=== PATIENT | female | born 1960 | race Caucasian/White ===

== ENCOUNTER 2019-08-12 08:46 | Inpatient (IN) | payer MEDICAID ==
[~2019-08-12] VITALS: Ht 160 cm; Wt 96.0 kg
[2019-08-12 10:13] LABS: Basophils # (auto) 0.2 uL; Basophils % (auto) 1.1 % (0.0-2.0); Eosinophils # (auto) 0.1 uL; Eosinophils % (auto) 0.7 % (0.0-7.0); Hematocrit 44.4 % (36.0-46.0); Hemoglobin 14.4 g/dL (12.2-16.2); Lymphocytes # (auto) 1.8 uL; Lymphocytes % (auto) 12.7 % (10.0-50.0); Mean Corpuscular Hemoglobin 29.2 pg (28.0-32.0); Mean Corpuscular Hgb Conc. 32.4 g/dL (32.0-36.0); Mean Corpuscular Volume 90.2 fL (80.0-100.0); Monocytes # (auto) 0.7 uL; Neutrophils # (auto) 11.7 uL; Neutrophils % (auto) 80.5 % (37.0-80.0); Platelet Count (auto) 324 10^3/uL (140-450); Red Blood Cells 4.92 10^6/uL (4.0-5.20); Red Cell Distribution Width 16.4 % (11.8-14.3); White Blood Cell 14.5 10^3/uL (4.4-10.8)
[2019-08-12 10:28] LABS: Albumin 3.4 g/dL (3.4-5.0); BUN/Creatinine Ratio 15.4; Calcium 8.6 mg/dL (8.5-10.1); Potassium 3.6 mmol/L (3.5-5.1)
[2019-08-12 10:31] LABS: Bilirubin, Total 0.5 mg/dL (0.2-1.0); Total Protein 6.6 g/dL (6.4-8.2)
[2019-08-12] MEDS ORDERED: FUROSEMIDE 40 MG/4 ML VIAL IV ONE (13:00)
[2019-08-12] MEDS ORDERED: ACETAMINOPHEN 500 MG TAB PO PRN (14:30)
[2019-08-12] MEDS ORDERED: DEXTROSE (50%) 50ML SYRG IV PRN (14:30)
[2019-08-12] MEDS ORDERED: TEMAZEPAM 15 MG CAP PO PRN (14:30)
[2019-08-12] MEDS ORDERED: traMADol HCL 50 MG TAB PO PRN (14:30)
[2019-08-12] MEDS ORDERED: PROMETHAZINE HCL 25 MG/ML 1ML IV PRN (14:30)
[2019-08-12] MEDS ORDERED: LACTULOSE 20Gm/30ML SOLN PO PRN (14:30)
[2019-08-12] MEDS ORDERED: MORPHINE SULF INJ 2 MG/ML SYRINGE 1ML IV PRN (14:30)
[2019-08-12] MEDS ORDERED: NITROGLYCERIN 0.4 MG SL TAB SL PRN (14:30)
--- NOTE | 2019-08-12 17:00 | NUR ---
Telemetry admit from ER ERNESTINA LOWE admitted to Telemetry unit after SBAR received. Patient oriented to Natalie Hensley, primary RN, unit, room, bed, and unit policies regarding patient care and visiting hours. Patient now on continuous telemetry monitoring, tele box #4 and telemetry reading on arrival to unit is . Patient placed on bedside oxygen, weighed by bedscale and encouraged to call if they need something. All questions and concerns addressed, patient verbalized understanding. Note:
--- NOTE | 2019-08-12 17:10 | NUR ---
PATIENT IS ALERT ORIENTED X4, AMBULATORY, SKIN INTACT, 1+ TO 2+ EDEMA ON BOTH LOWER EXTREMITIES NOTED, PATIENT IS VERY PLEASANT, AWARE VERY WELL WITH HER LIFE STYLE SMOKING AND EATING UNHEALTHY DIET, EDUCATION REGARDING SMOKING AND DIABETES GIVEN TO PT, PAIN 0/10 AT THIS TIME, CALL LIGHT WITHIN REACH.
[2019-08-12] MEDS: ACCU-CHEK COMFORT CURVE STRIP VI SCH ×2 (17:35→22:01)
[2019-08-12] MEDS ORDERED: ESTR0.3T PO (17:42)
[2019-08-12] MEDS ORDERED: CHOL20007 PO (17:42)
[2019-08-12] MEDS ORDERED: GABA-339 PO (17:42)
[2019-08-12] MEDS ORDERED: IBUP100S11 PO (17:42)
[2019-08-12 17:49] VITALS: BP 163/89
--- NOTE | 2019-08-12 18:33 | NUR ---
PATIENT CONTINUE STABLE, EDUCATION REGARDING FLUID RESTRICTION GIVEN TO PT, VERBALIS UNDERSTANDING
--- NOTE | 2019-08-12 19:30 | NUR ---
Opening Shift Note Assumed care of patient, awake and alert. No S/S of distress/SOB. Instructed on POC and to call for assist PRN, will continue to monitor for changes Q1hr and PRN.
--- NOTE | 2019-08-12 20:30 | NUR ---
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 She states she takes Ibuprofen and Gabapentin and had not taken any all day. No orders available, so paged hospitalist.
[2019-08-12] MEDS ORDERED: GABAPENTIN 300 MG CAP PO ONE (20:45)
[2019-08-12] MEDS ORDERED: IBUPROFEN 600 MG TAB PO ONE (20:45)
--- NOTE | 2019-08-12 21:00 | NUR ---
Received new orders for one time dose of 600mg Gabapentin and one time does of ibuprofen 600 mg. Will input orders and administer accordingly.
[2019-08-12 22:00] VITALS: BP 160/99
[2019-08-12] MEDS: SODIUM CHLOR 0.9% PF (SALINE LOCK) 10ML VIAL/SYR IV SCH (22:00)
[2019-08-12] MEDS: CARVEDILOL 3.125 MG TAB PO SCH (22:00)
[2019-08-13 03:31] LABS: Alcohol, Urine < 3.0 mg/dL (0-5); Amphetamine Screen, Urine NEGATIVE (NEGATIVE); Barbiturate Scree,Urine NEGATIVE (NEGATIVE); Benzodiazephine Screen, Urine NEGATIVE (NEGATIVE); Cannabinoid Screen, Urine NEGATIVE (NEGATIVE); Cocaine Screen, Urine NEGATIVE (NEGATIVE); Opiate Scree,Urine NEGATIVE (NEGATIVE); Phencyclidine Screen, Urine NEGATIVE (NEGATIVE)
[2019-08-13 03:36] LABS: Urine Bacteria FEW /hpf (None Seen); Urine Blood Negative /uL (Negative); Urine Mucus FEW (None Seen); Urine WBC 3 /hpf (0 - 5)
[2019-08-13 05:00] VITALS: BP 158/88
[2019-08-13] MEDS: SODIUM CHLOR 0.9% PF (SALINE LOCK) 10ML VIAL/SYR IV SCH ×2 (05:51→14:00)
[2019-08-13] MEDS: ACCU-CHEK COMFORT CURVE STRIP VI SCH ×3 (05:51→17:00)
[2019-08-13 06:16] LABS: Basophils # (auto) 0.1 uL; Basophils % (auto) 1.2 % (0.0-2.0); Eosinophils # (auto) 0.1 uL; Eosinophils % (auto) 1.4 % (0.0-7.0); Hematocrit 42.2 % (36.0-46.0); Hemoglobin 13.9 g/dL (12.2-16.2); Lymphocytes # (auto) 1.7 uL; Lymphocytes % (auto) 16.6 % (10.0-50.0); Mean Corpuscular Hemoglobin 28.9 pg (28.0-32.0); Mean Corpuscular Volume 87.7 fL (80.0-100.0); Monocytes # (auto) 0.7 uL; Monocytes % (auto) 6.7 % (0.0-12.0); Neutrophils # (auto) 7.5 uL; Neutrophils % (auto) 74.1 % (37.0-80.0); Nucleated Red Blood Cells % 0.1 %; Platelet Count (auto) 297 10^3/uL (140-450); Red Blood Cells 4.81 10^6/uL (4.0-5.20); Red Cell Distribution Width 15.6 % (11.8-14.3); White Blood Cell 10.1 10^3/uL (4.4-10.8)
[2019-08-13 06:32] LABS: Alanine Aminotransferase 38 U/L (13-56); Albumin 3.1 g/dL (3.4-5.0); Anion Gap 7 (5-15); Aspartate Aminotransferase 16 U/L (15-37); BUN/Creatinine Ratio 23.3; Blood Urea Nitrogen 21 mg/dL (7-18); Calcium 8.5 mg/dL (8.5-10.1); Carbon Dioxide 26 mmol/L (21-32); Chloride 109 mmol/L (98-107); GFR African American 82 mL/min; GFR Non-African American 68 mL/min; Glucose 111 mg/dL (74-106); Potassium 3.8 mmol/L (3.5-5.1); Sodium 142 mmol/L (136-145)
[2019-08-13 06:35] LABS: Alkaline Phosphatase 79 U/L (45-117); Bilirubin, Total 0.5 mg/dL (0.2-1.0); Total Protein 6.3 g/dL (6.4-8.2)
--- NOTE | 2019-08-13 08:00 | NUR ---
RECEIVED PATIENT ALERT AND ORIENTED X3, NOT IN DISTRESS, LS WHEEZING IN BILATERAL UPPER LOWER LUNG LOBES, RR=18, SAT=95%, DEEP BREATHING AND COUGHING ENCOURAGED, DEMONSTRATED UNDERSTANDING, HEART PACED BEATS R=72 ON TELE MONITOR, ABDOMEN SOFT AND FLAT WITH ACTIVE BS, LAST BM=THIS MORNING REPORTED, SKIN INTACT WARM TO TOUCH, RADIAL AND PEDAL PULSES PALPABLE, CAP REFILL<3 SECONDS, HEAD OF BED ELEVATED, BED ON LOW POSITION, RAILS UP X2, CALL LIGHT ON REACH, WILL CONTINUE MONITORING.
[2019-08-13 09:00] VITALS: BP 160/89
--- NOTE | 2019-08-13 09:00 | NUR ---
FQ=[id number] P=77, WENT OUT OF THE UNIT FOR SMOKING, AMA ON CHART, PAGED OVER HEAD TO RETURN TO THE ROOM, WAITING PATIENT TO RETURN BACK TO THE ROOM FOR BP MONITORING AND FOLLOW UP, WILL CONTINUE MONITORING.
[2019-08-13] MEDS ORDERED: NITROGLYCERIN 0.2MG/HR TOPICAL PATCH TD SCH (10:00)
[2019-08-13] MEDS ORDERED: ENALAPRIL MALEATE 2.5 MG TAB PO SCH (10:00)
[2019-08-13] MEDS ORDERED: PANTOPRAZOLE 40 MG TAB PO SCH (10:00)
[2019-08-13] MEDS ORDERED: FUROSEMIDE 40 MG/4 ML VIAL IV SCH (10:00)
[2019-08-13] MEDS ORDERED: ASPirin 81 mg TAB PO SCH (10:00)
[2019-08-13] MEDS ORDERED: ENOXAPARIN SOD 40 MG/0.4 ML SYRINGE SC SCH (10:00)
[2019-08-13] MEDS ORDERED: POTASSIUM CHL 20 Meq TABLET PO SCH (10:00)
[2019-08-13] MEDS: CARVEDILOL 3.125 MG TAB PO SCH (10:33)
[2019-08-13] MEDS ORDERED: ENAL2.5T PO (12:16)
[2019-08-13] MEDS ORDERED: FURO1TAB33 PO (12:16)
[2019-08-13] MEDS ORDERED: CAR3125T PO (12:16)
[2019-08-13 13:00] VITALS: BP 145/86
--- NOTE | 2019-08-13 13:11 | NUR ---
NONE COMPLIANT WITH TELE MONITOR, PENDING D/C IF CLEARED WITH CARDIOLOGY, WAITING FOR CARDIOLOGY CONSULT, WILL CONTINUE MONITORING.
[2019-08-13 14:45] VITALS: BP 148/82
--- NOTE | 2019-08-13 16:30 | NUR ---
D/C INSTRUCTIONS AND PCP FOLLOW UP APPOINTMENT ARRANGEMENT INFORMATION PROVIDED, VERBALIZED UNDERSTANDING, MEDICATION BROUGHT TO THE ROOM BY [facility], MEDICATION EDUCATION PROVIDED, VERBALIZED UNDERSTANDING, SS CONSULT WAS DONE ORDERED, D/C TELE AND IV SITE, TOLERATED WELL, PATIENT IS A HOME LESS AND REQUESTED TO STAY FOR DINNER, CHARGE NURSE TONYA WAS INFORMED, WAITING TO EAT DINNER BEFORE D/C, NOT IN DISTRESS DENIED PAIN, WILL CONTINUE MONITORING.
--- NOTE | 2019-08-13 18:00 | NUR ---
OUT OF THE UNIT BELONGINGS IN THE ROOM, DINNER AT THE TABLE, PAGED OVER HEAD TO COME TO THE ROOM, CAME BACK TO THE ROOM AND EATING DINNER AT THIS MOMENT.
--- NOTE | 2019-08-13 19:06 | NUR ---
REFUSED TO D/C AND LEAVE, REASONING NO PLACE TO GO, "ROOMMATE REFUSED TO TAKE ME BACK, NO BED AVAILABLE IN HALFWAY." PHYSICAL CHEMISTRY TEACHER CHARGE NOTIFIED.
--- NOTE | 2019-08-13 19:22 | NUR ---
Discharge planning per consult, patient has orders for home health and homeless resources. Patient was trying to delay all day her discharge, being argumentative with the nurse, although on multiple encounters I advised I needed an address to refer for her home health. She even told Dr. Palacios that she wasn't ready because she was still looking for a place. Patient said she could go to her friends house but he was selling it. She said all the number to the multiple homeless resources I provided were disconnected; I provided her with more homeless resources including churches. Home Health referral were faxed to [facility] [phone] and [facility] [phone]. Acceptance is pending and referral was also faxed to [facility] [phone] and the front end software engineer CM or nurse can follow up for acceptance and auth. Addendum: 08/13/19 at 1928 by KAYCEE DECKER Amended: Links added.
--- NOTE | 2019-08-13 19:24 | NUR ---
PENDING TO [facility], REPORT WAS GIVEN TO THE AUTOMOBILE MECHANIC SUPERVISOR RN.
--- NOTE | 2019-08-13 20:52 | NUR ---
Patient discharged with follow up appointment with primary caregiver. Patient plans on contacting the [facility] department to regain access to her home for the night. Patient also provided with homeless group home resources and was advised that [facility] will have open beds in the morning.
== END 2019-08-13 20:52 | disposition home health service (06) | DRG 194 ==
LOC: ER 08:46 → TELE 08:47 → TELE-EAST 17:00
PROVIDERS: ADMIT Internal Medicine; ATTEND Hospitalist
DX: I11.0 Hypertensive heart disease with heart failure (principal); G62.9 Polyneuropathy, unspecified; D72.829 Elevated white blood cell count, unspecified; F17.210 Nicotine dependence, cigarettes, uncomplicated; G89.29 Other chronic pain; I50.33 Acute on chronic diastolic (congestive) heart failure; M19.90 Unspecified osteoarthritis, unspecified site; M47.9 Spondylosis, unspecified; R73.9 Hyperglycemia, unspecified; M54.9 Dorsalgia, unspecified; Z87.442 Personal history of urinary calculi; Z59.0 Homelessness; Z80.8 Family history of malignant neoplasm of other organs or systems; Z80.7 Family history of other malignant neoplasms of lymphoid, hematopoietic and related tissues; Z79.899 Other long term (current) drug therapy
CPT/HCPCS: 36415; 71046; 80053; 80307; 81001; 82550; 82962; 83036; 83880; 84484; 85025; 85379; 93005; 93306; 93970; 94761; 96374; G0378

== ENCOUNTER 2019-08-18 03:22 | Emergency (ER) | payer MEDICAID ==
[~2019-08-18] VITALS: Ht 160 cm; Wt 96.2 kg
[~2019-08-18 03:22] MED LIST: CAR3125T PO; CHOL20007 PO; ENAL2.5T PO; ESTR0.3T PO; FURO1TAB33 PO; GABA-339 PO
[2019-08-18 06:06] LABS: Basophils # (auto) 0.1 uL; Basophils % (auto) 0.8 % (0.0-2.0); Eosinophils # (auto) 0.1 uL; Eosinophils % (auto) 0.9 % (0.0-7.0); Hematocrit 42.5 % (36.0-46.0); Lymphocytes % (auto) 16.5 % (10.0-50.0); Mean Corpuscular Hemoglobin 28.9 pg (28.0-32.0); Mean Corpuscular Hgb Conc. 32.9 g/dL (32.0-36.0); Mean Corpuscular Volume 87.9 fL (80.0-100.0); Monocytes # (auto) 0.9 uL; Monocytes % (auto) 7.7 % (0.0-12.0); Neutrophils # (auto) 8.8 uL; Neutrophils % (auto) 74.1 % (37.0-80.0); Nucleated Red Blood Cells % 0.1 %; Platelet Count (auto) 310 10^3/uL (140-450); Red Blood Cells 4.83 10^6/uL (4.0-5.20); Red Cell Distribution Width 15.7 % (11.8-14.3); White Blood Cell 11.9 10^3/uL (4.4-10.8)
[2019-08-18 06:22] LABS: INR < 0.93 (0.9-1.15); Partial Thromboplastin Time 28.5 sec (23.64-32.05)
[2019-08-18 06:24] LABS: Albumin 3.4 g/dL (3.4-5.0); Anion Gap 8 (5-15); Blood Urea Nitrogen 21 mg/dL (7-18); Calcium 8.4 mg/dL (8.5-10.1); Carbon Dioxide 25 mmol/L (21-32); Chloride 111 mmol/L (98-107); Glucose 144 mg/dL (74-106); Potassium 3.4 mmol/L (3.5-5.1); Sodium 144 mmol/L (136-145)
[2019-08-18 06:32] LABS: Alanine Aminotransferase 33 U/L (13-56); Alkaline Phosphatase 95 U/L (45-117); Aspartate Aminotransferase 17 U/L (15-37); BUN/Creatinine Ratio 21.9; Bilirubin, Total 0.3 mg/dL (0.2-1.0); GFR African American 76 mL/min; GFR Non-African American 63 mL/min; Total Protein 6.5 g/dL (6.4-8.2)
[2019-08-18] MEDS ORDERED: POTASSIUM EFFERVESENT TAB 25 MEQ PO ONE (08:15)
[2019-08-18] MEDS ORDERED: FUROSEMIDE 40 MG/4 ML VIAL IV ONE (09:00)
[2019-08-18] MEDS ORDERED: SPIRONOLACTONE 25 MG TAB PO ONE (09:00)
[2019-08-18 11:30] VITALS: BP 129/71
[2019-08-18 11:36] LABS: Urine Bacteria FEW /hpf (None Seen); Urine Blood Negative /uL (Negative); Urine Mucus FEW (None Seen); Urine Specific Gravity 1.017 (1.001-1.035); Urine WBC 14 /hpf (0 - 5)
[2019-08-18 11:52] LABS: Alcohol, Urine < 3.0 mg/dL (0-5); Amphetamine Screen, Urine NEGATIVE (NEGATIVE); Barbiturate Scree,Urine NEGATIVE (NEGATIVE); Benzodiazephine Screen, Urine NEGATIVE (NEGATIVE); Cannabinoid Screen, Urine NEGATIVE (NEGATIVE); Cocaine Screen, Urine NEGATIVE (NEGATIVE); Opiate Scree,Urine NEGATIVE (NEGATIVE); Phencyclidine Screen, Urine NEGATIVE (NEGATIVE)
--- NOTE | 2019-08-18 15:54 | NUR ---
Received referral to see pt in the Emergency room. Pt has been seen prior and given a packet of resources at that time. Again pt was seeing in the ER and was refusing to leave. Pt was offered resources again, which she refused to take. Pt was escorted by security out of the hospital.
== END 2019-08-18 13:33 | disposition home or self-care (01) ==
LOC: ER 03:24
DX: R07.89 Other chest pain (principal); E87.6 Hypokalemia; I11.0 Hypertensive heart disease with heart failure; I50.42 Chronic combined systolic (congestive) and diastolic (congestive) heart failure; R60.9 Edema, unspecified; N39.0 Urinary tract infection, site not specified; E11.9 Type 2 diabetes mellitus without complications; F17.210 Nicotine dependence, cigarettes, uncomplicated; Z87.442 Personal history of urinary calculi
CPT/HCPCS: 36415; 71045; 80053; 80307; 81001; 83880; 84484; 85025; 85610; 85730; 93005; 96374; 99284; J1940

== ENCOUNTER 2019-08-26 04:08 | Emergency (ER) | payer MEDICAID ==
[~2019-08-26] VITALS: Ht 160 cm; Wt 90.7 kg
[2019-08-26 04:14] VITALS: BP 154/84
== END 2019-08-26 06:55 | disposition left against medical advice (07) ==
LOC: ER 04:08 → EDBD 04:08 → ER 06:55
DX: R11.2 Nausea with vomiting, unspecified (principal); Z53.21 Procedure and treatment not carried out due to patient leaving prior to being seen by health care provider